=== PATIENT | male | born 2000 | race Caucasian/White ===

== ENCOUNTER 2020-08-05 19:13 | Emergency (ER) | payer OTHER ==
[2020-08-05 19:23] VITALS: BP 116/66; PULSE 109; TEMP 98; BMI 22.0
[2020-08-05] MEDS ORDERED: OXYMETAZOLINE 0.05% NASAL SOLUTION 15 ML BOTTLE NS ONE (19:39)
[2020-08-05] MEDS ORDERED: ACETAMINOPHEN 1000 MG/100 ML VIAL (NON FORMULARY) IVPB ONE (19:50)
[2020-08-05] MEDS ORDERED: ACETAMINOPHEN INJECTION 100 ML IVPB ONE (19:55)
== END 2020-08-05 21:34 | disposition home or self-care (01) ==
LOC: JERFT 19:13
PROC: 3E0333Z Introduction of Anti-inflammatory into Peripheral Vein, Percutaneous Approach (ICD-10-PCS; principal; 2020-08-05)
DX: R04.0 Epistaxis (principal); S02.2XXA Fracture of nasal bones, initial encounter for closed fracture
CPT/HCPCS: 70486-TC; 99284-25; J0131